=== PATIENT | female | born 1980 | race Two or more races ===

== ENCOUNTER 2023-10-02 21:29 | Emergency (ER) | payer OTHER ==
[~2023-10-02] VITALS: Ht 162.6 cm; Wt 95.3 kg
[2023-10-02] MEDS ORDERED: ZESTRIL40 M1 PO (21:54)
[2023-10-02] MEDS ORDERED: PROZAC40 MG PO (21:55)
[2023-10-02] MEDS ORDERED: LORAZEPAM0.5 MG PO (21:55)
== END 2023-10-03 01:00 | disposition home or self-care (01) ==
LOC: EMR PED 21:30 → ER 21:30 → EDBD 21:30 → ER 23:09
DX: J32.9 Chronic sinusitis, unspecified (principal); R53.81 Other malaise; Z88.6 Allergy status to analgesic agent; Z91.013 Allergy to seafood